=== PATIENT | female | born 1995 | race Caucasian/White ===

== ENCOUNTER 2019-02-07 09:42 | Emergency (ER) | payer OTHER ==
[~2019-02-07] VITALS: Ht 165.1 cm; Wt 114.9 kg
[2019-02-07 09:50] VITALS: BP 135/94
--- NOTE | 2019-02-07 09:57 | NUR ---
Pt. ambulated to bed 3
--- NOTE | 2019-02-07 09:58 | NUR ---
BIB SELF C/O RIGHT BIG TOE PAIN S/P HIT HER RIGHT TOE ON A CORNER OF A TABLE YESTERDAY. +CMS TO RIGHT 1ST TOE. PT STATES SHE TOOK TRAMADOL AT 0600 WITH NO RELIEF. MED HX:MIGRAINE. AAOX4 WITH EVEN AND STEADY GAIT;PATIENT STATES PAIN OF 7/10 AT THIS TIME; PATIENT POSITIONED FOR COMFORT; HOB ELEVATED; BEDRAILS UP X1; BED DOWN. ER MD MADE AWARE OF PT STATUS.
[2019-02-07] MEDS ORDERED: LIDOCAINE MPF 1% 5mL VIAL INJ ONE (10:20)
--- NOTE | 2019-02-07 10:46 | NUR ---
RIGHT BIG TOENAIL REMOVED BY DR FAIRCHILD. PT TOLERATED PROCEDURE WELL.
[2019-02-07] MEDS ORDERED: CEPHALEXIN 500 MG CAP PO ONE (11:40)
[2019-02-07 12:23] VITALS: BP 132/89
--- NOTE | 2019-02-07 12:23 | NUR ---
Patient discharged with v/s stable. Written and verbal after care instructions given and explained. Patient alert, oriented and verbalized understanding of instructions. Ambulatory with steady gait. All questions addressed prior to discharge. ID band removed. Patient advised to follow up with PMD. Rx of Keflex 500mg given. Patient educated on indication of medication including possible reaction and side effects. Opportunity to ask questions provided and answered.
== END 2019-02-07 12:23 | disposition home or self-care (01) ==
LOC: MED 09:42
DX: B35.1 Tinea unguium (principal); L60.0 Ingrowing nail; G43.909 Migraine, unspecified, not intractable, without status migrainosus
CPT/HCPCS: 11730; 99283; J2001

== ENCOUNTER 2019-12-13 10:53 | Emergency (ER) | payer OTHER ==
[~2019-12-13] VITALS: Ht 165.1 cm; Wt 113.4 kg
[2019-12-13 10:58] VITALS: BP 148/86
--- NOTE | 2019-12-13 11:00 | NUR ---
PT AMBULATED TO LOBBY
--- NOTE | 2019-12-13 12:40 | NUR ---
PT TAKEN TO BED 12.
--- NOTE | 2019-12-13 12:51 | NUR ---
DEEPA YATES EVALUATING PT AT BEDSIDE
[2019-12-13] MEDS ORDERED: KETOROLAC 30 MG/ML VIAL IM ONE (12:55)
[2019-12-13] MEDS ORDERED: PROCHLORPERAZINE 10 MG/2 ML VIAL IM ONE (12:55)
--- NOTE | 2019-12-13 13:00 | NUR ---
PT AMB TO BATHROOM STEADY GAIT TO PROVIDE URINE SAMPLE
--- NOTE | 2019-12-13 13:35 | NUR ---
PT STATES PAIN DECREASING TO 6/10 AT THIS TIME
--- NOTE | 2019-12-13 14:00 | NUR ---
Patient discharged with v/s stable. Written and verbal after care instructions given and explained. Patient alert, oriented and verbalized understanding of instructions. Ambulatory with steady gait. All questions addressed prior to discharge. ID band removed. Patient advised to follow up with PMD. Rx of TRAMADOL, ZOFRAN, TYLENOL given. Patient educated on indication of medication including possible reaction and side effects. Opportunity to ask questions provided and answered.
[2019-12-13 14:02] VITALS: BP 120/67
== END 2019-12-13 14:00 | disposition home or self-care (01) ==
LOC: MED 10:53
DX: R51 Headache (principal)
CPT/HCPCS: 81025; 96372; 99284; J0780; J1885; Q0163

== ENCOUNTER 2019-12-18 07:53 | Emergency (ER) | payer OTHER ==
[~2019-12-18] VITALS: Ht 167.6 cm; Wt 111.6 kg
[2019-12-18 07:58] VITALS: BP 138/84
--- NOTE | 2019-12-18 08:03 | NUR ---
PT TAKEN TO BED 7.
--- NOTE | 2019-12-18 08:10 | NUR ---
PT C/O HEADACHE X 1.5 WEEK ACCOMPANIED BY N/V & DIZZINESS. PT WAS SEEN AT [facility] December AND SENT HOME W/ DX OF MIGRAINES. PER PT, TRAMADOL, IBUPROFEN AND TYLENOL IS NOT RELIEVING PAIN. DENIES PHOTOPHOBIA OR SENSITIVITY TO SOUND. PT WAS TOLD TO HAVE A CT SCAN BY HER PCP BUT WAITED 4 HOURS AT [facility] AND WAS NOT SEEN. PT DENIES ANY FEVER, CP, SOB, OR COUGH AT THIS TIME; PATIENT STATES PAIN OF 9/10 AT THIS TIME; VSS; PATIENT POSITIONED FOR COMFORT; HOB ELEVATED; BEDRAILS UP X1; BED DOWN. ER MD MADE AWARE OF PT STATUS.
--- NOTE | 2019-12-18 08:12 | NUR ---
Dr. Paulino is evaluating the patient at bedside.
[2019-12-18] MEDS ORDERED: PROCHLORPERAZINE 10 MG/2 ML VIAL IVP ONE (08:20)
[2019-12-18] MEDS ORDERED: ACETAMINOPHEN 325 MG TAB PO ONE (08:20)
[2019-12-18] MEDS ORDERED: NACL 0.45% 1,000 ML IV ONE (08:20)
[2019-12-18] MEDS ORDERED: KETOROLAC 30 MG/ML VIAL IVP ONE (08:20)
[2019-12-18] MEDS ORDERED: diphenhydrAMINE 50 MG/ML VIAL IVP ONE (08:20)
--- NOTE | 2019-12-18 08:28 | NUR ---
Patient taken to CT scan via wheelchair by tech.
--- NOTE | 2019-12-18 08:35 | NUR ---
Pt to bed 07 via W/C from CT scan.
--- NOTE | 2019-12-18 09:13 | NUR ---
PT STATES SHE FEELS BETTER AT THIS TIME.
--- NOTE | 2019-12-18 09:36 | NUR ---
DR. DOMINGUEZ RE-EVALUATING PT AT BEDSIDE
[2019-12-18 10:03] VITALS: BP 120/78
--- NOTE | 2019-12-18 10:03 | NUR ---
Patient discharged with v/s stable. Written and verbal after care instructions given and explained. Patient alert, oriented and verbalized understanding of instructions. Ambulatory with steady gait. All questions addressed prior to discharge. ID band removed. Patient advised to follow up with PMD. Rx of Compazine given. Patient educated on indication of medication including possible reaction and side effects. Opportunity to ask questions provided and answered.
== END 2019-12-18 10:03 | disposition home or self-care (01) ==
LOC: MED 07:53
DX: G43.909 Migraine, unspecified, not intractable, without status migrainosus (principal)
CPT/HCPCS: 70450; 81002; 81025; 96374; 96375; 99284; J0780; J1200; J1885; J7030

== ENCOUNTER 2019-12-20 08:44 | Emergency (ER) | payer OTHER ==
[~2019-12-20] VITALS: Ht 165.1 cm; Wt 110.2 kg
[2019-12-20 08:47] VITALS: BP 155/90
[2019-12-20] MEDS ORDERED: TOMOMETER 1 DEV DEV MC ONE (08:58)
[2019-12-20] MEDS ORDERED: TETRACAINE HCL/PF 0.5% OPTH 4 ML BTL OP ONE (09:00)
[2019-12-20 09:24] LABS: BASOPHILS % (AUTO) 0.4 % (0.0-2.0); EOSINOPHILS # (AUTO) 0.1 K/uL (0-0.4); EOSINOPHILS % (AUTO) 0.7 % (0.0-4.0); HEMATOCRIT 46.9 % (36-48); HEMOGLOBIN 15.7 g/dL (12.0-16.0); LYMPHOCYTES # (AUTO) 2.6 K/uL (2.5-16.5); MEAN CORPUSCULAR HEMOGLOBIN 33 pg (27-31); MEAN CORPUSCULAR HGB CONC 34 g/dL (33-37); MEAN CORPUSCULAR VOLUME 98.4 fL (80-94); MONOCYTES # (AUTO) 0.5 K/uL (0.8-1.0); MONOCYTES % (AUTO) 5.1 % (1.7-9.3); NEUTROPHILS # (AUTO) 6.4 K/uL (1.8-7.7); NEUTROPHILS % (AUTO) 66.8 % (42.2-75.2); PLATELET COUNT (AUTO) 356 K/uL (140-450); RED BLOOD CELL COUNT(AUTO) 4.76 MIL/uL (4.20-5.40); RED CELL DISTRIBUTION WIDTH 13.7 % (11.6-13.7); WHITE BLOOD COUNT (AUTO) 9.6 K/uL (4.8-10.8)
[2019-12-20 09:50] LABS: ALBUMIN 4.6 g/dL (3.4-5.0); ANION GAP 15.2 (8-16); CARBON DIOXIDE 29.3 mmol/L (21-32); CREATININE 0.8 mg/dL (0.6-1.3); POTASSIUM 3.5 mmol/L (3.5-5.1); TOTAL BILIRUBIN 0.5 mg/dL (0.0-1.0)
[2019-12-20] MEDS ORDERED: ACETAMINOPHEN EXTRA STRENGTH 500 MG TAB PO ONE (12:30)
[2019-12-20 13:25] VITALS: BP 155/90
== END 2019-12-20 13:25 | disposition home or self-care (01) ==
LOC: MED 08:44
DX: H49.01 Third [oculomotor] nerve palsy, right eye (principal); H02.409 Unspecified ptosis of unspecified eyelid; H53.2 Diplopia; R51 Headache; G43.909 Migraine, unspecified, not intractable, without status migrainosus
CPT/HCPCS: 36415; 70496; 80053; 81002; 81025; 85025; 99284; Q9967

== ENCOUNTER 2020-03-02 16:40 | Emergency (ER) | payer OTHER ==
[~2020-03-02] VITALS: Ht 167.6 cm; Wt 116.6 kg
[2020-03-02 16:55] VITALS: BP 149/90
[2020-03-02 18:44] LABS: BASOPHILS % (AUTO) 0.1 % (0.0-2.0); EOSINOPHILS # (AUTO) 0.4 K/uL (0-0.4); EOSINOPHILS % (AUTO) 4.3 % (0.0-4.0); HEMATOCRIT 39.7 % (36-48); HEMOGLOBIN 13.4 g/dL (12.0-16.0); LYMPHOCYTES # (AUTO) 2.9 K/uL (2.5-16.5); LYMPHOCYTES % (AUTO) 33.8 % (20.5-51.1); MEAN CORPUSCULAR HEMOGLOBIN 33 pg (27-31); MEAN CORPUSCULAR HGB CONC 34 g/dL (33-37); MEAN CORPUSCULAR VOLUME 98.2 fL (80-94); MONOCYTES # (AUTO) 0.6 K/uL (0.8-1.0); MONOCYTES % (AUTO) 7.3 % (1.7-9.3); NEUTROPHILS # (AUTO) 4.6 K/uL (1.8-7.7); NEUTROPHILS % (AUTO) 54.5 % (42.2-75.2); PLATELET COUNT (AUTO) 321 K/uL (140-450); RED BLOOD CELL COUNT(AUTO) 4.04 MIL/uL (4.20-5.40); RED CELL DISTRIBUTION WIDTH 13.8 % (11.6-13.7); WHITE BLOOD COUNT (AUTO) 8.5 K/uL (4.8-10.8)
[2020-03-02 18:56] LABS: ALBUMIN 3.8 g/dL (3.4-5.0); ANION GAP 13.3 (8-16); CARBON DIOXIDE 27.3 mmol/L (21-32); CREATININE 0.6 mg/dL (0.6-1.3); POTASSIUM 3.6 mmol/L (3.5-5.1); TOTAL BILIRUBIN 0.3 mg/dL (0.0-1.0)
[2020-03-02 19:43] VITALS: BP 128/76
[2020-03-02] MEDS ORDERED: INTUBATION KIT MC ONE (21:24)
[2020-03-02 22:19] LABS: APPEARANCE,URINE CLEAR (CLEAR); BILIRUBIN,URINE NEGATIVE (NEGATIVE); BLOOD, URINE 2+ (NEGATIVE); COLOR,URINE YELLOW (YELLOW); LEUKOCYTE ESTERASE ,URINE 1+ (NEGATIVE); NITRITE, URINE NEGATIVE (NEGATIVE); PH,URINE 6.5 (5.0-9.0); UGLUCOSE NEGATIVE (NEGATIVE)
== END 2020-03-02 19:40 | disposition home or self-care (01) ==
LOC: MED 16:40
DX: N39.0 Urinary tract infection, site not specified (principal); F17.210 Nicotine dependence, cigarettes, uncomplicated; F12.10 Cannabis abuse, uncomplicated; Z87.42 Personal history of other diseases of the female genital tract
CPT/HCPCS: 36415; 76856; 80053; 81001; 81025; 85025; 87086; 93976; 99284; Q0092

== ENCOUNTER 2020-03-03 11:29 | Emergency (ER) | payer OTHER ==
[~2020-03-03] VITALS: Ht 165.1 cm; Wt 114.3 kg
[2020-03-03 11:39] VITALS: BP 150/82
--- NOTE | 2020-03-03 11:44 | NUR ---
24 y/o female from home c/o lower abd pain x 3 days. Pt states she was seen at [facility] yesterday for same pain. Denies N/V/D. Abd slightly tender to palp. Denies difficulty with bowel movement. Afebrile upon arrival. Positioned for comfort. VSS medhx: migraines, genital herpes
--- NOTE | 2020-03-03 11:56 | NUR ---
Dr Flores at bedside examining pt
[2020-03-03] MEDS ORDERED: KETOROLAC 30 MG/ML VIAL IVP ONE (12:05)
[2020-03-03] MEDS ORDERED: ONDANSETRON 4 MG/2 ML VIAL IVP ONE (12:05)
[2020-03-03] MEDS ORDERED: NACL 0.9% 1,000 ML IV ONE (12:05)
--- NOTE | 2020-03-03 12:15 | NUR ---
Pt refuses blood draw stating she had blood drawn yesterday
--- NOTE | 2020-03-03 12:20 | NUR ---
20G IV placed to left ac, blood drawn at this time.
[2020-03-03 12:30] LABS: APPEARANCE,URINE CLEAR (CLEAR); BILIRUBIN,URINE NEGATIVE (NEGATIVE); BLOOD, URINE TRACE-I (NEGATIVE); COLOR,URINE YELLOW (YELLOW); LEUKOCYTE ESTERASE ,URINE TRACE (NEGATIVE); NITRITE, URINE NEGATIVE (NEGATIVE); UGLUCOSE NEGATIVE (NEGATIVE)
[2020-03-03 12:38] LABS: RBC,URINE 0-5 /HPF (0-5); WBC,URINE 0-5 /HPF (0-5)
--- NOTE | 2020-03-03 12:43 | NUR ---
Consent for CT with constrast signed by pt
[2020-03-03 12:51] LABS: BASOPHILS % (AUTO) 0.1 % (0.0-2.0); EOSINOPHILS # (AUTO) 0.2 K/uL (0-0.4); EOSINOPHILS % (AUTO) 2.2 % (0.0-4.0); HEMATOCRIT 42.7 % (36-48); HEMOGLOBIN 14.6 g/dL (12.0-16.0); LYMPHOCYTES # (AUTO) 1.9 K/uL (2.5-16.5); LYMPHOCYTES % (AUTO) 20.1 % (20.5-51.1); MEAN CORPUSCULAR HEMOGLOBIN 33 pg (27-31); MEAN CORPUSCULAR HGB CONC 34 g/dL (33-37); MEAN CORPUSCULAR VOLUME 97.2 fL (80-94); MONOCYTES # (AUTO) 0.5 K/uL (0.8-1.0); MONOCYTES % (AUTO) 5.7 % (1.7-9.3); NEUTROPHILS # (AUTO) 6.8 K/uL (1.8-7.7); NEUTROPHILS % (AUTO) 71.9 % (42.2-75.2); PLATELET COUNT (AUTO) 319 K/uL (140-450); RED BLOOD CELL COUNT(AUTO) 4.39 MIL/uL (4.20-5.40); RED CELL DISTRIBUTION WIDTH 13.9 % (11.6-13.7); WHITE BLOOD COUNT (AUTO) 9.5 K/uL (4.8-10.8)
[2020-03-03 13:05] LABS: ALBUMIN 4.2 g/dL (3.4-5.0); ANION GAP 13.8 (8-16); CARBON DIOXIDE 27.6 mmol/L (21-32); CREATININE 0.6 mg/dL (0.6-1.3); POTASSIUM 3.4 mmol/L (3.5-5.1); TOTAL BILIRUBIN 0.6 mg/dL (0.0-1.0)
--- NOTE | 2020-03-03 13:23 | NUR ---
Pt taken to CT by wheelchair
--- NOTE | 2020-03-03 13:33 | NUR ---
Pt returned from CT via wheelchair
--- NOTE | 2020-03-03 14:16 | NUR ---
IV discontinued, 2x2 gauze placed to IV site, bleeding controlled
[2020-03-03 14:19] VITALS: BP 150/82
--- NOTE | 2020-03-03 14:20 | NUR ---
Patient discharged with v/s stable. Written and verbal after care instructions given and explained. Patient alert, oriented and verbalized understanding of instructions. Ambulatory with steady gait. All questions addressed prior to discharge. ID band removed. Patient advised to follow up with PMD. Rx of MiraLax and Colace given. Patient educated on indication of medication including possible reaction and side effects. Opportunity to ask questions provided and answered.
== END 2020-03-03 14:20 | disposition home or self-care (01) ==
LOC: MED 11:29
DX: K59.00 Constipation, unspecified (principal); B00.9 Herpesviral infection, unspecified; F12.90 Cannabis use, unspecified, uncomplicated; F17.200 Nicotine dependence, unspecified, uncomplicated; R03.0 Elevated blood-pressure reading, without diagnosis of hypertension; Z71.6 Tobacco abuse counseling
CPT/HCPCS: 36415; 74177; 80053; 81001; 81025; 85025; 96361; 96374; 96375; 99285; J1885; J2405; J7030; Q9967

== ENCOUNTER 2022-02-14 16:45 | Emergency (ER) | payer OTHER ==
[~2022-02-14] VITALS: Ht 167.6 cm; Wt 112.5 kg
[2022-02-14 17:02] VITALS: BP 134/91
--- NOTE | 2022-02-14 17:12 | NUR ---
PT AMB TO BED 12.
[2022-02-14] MEDS ORDERED: KETOROLAC 30 MG/ML VIAL IM ONE (17:45)
[2022-02-14] MEDS ORDERED: DEXAMETHASONE 10 MG/ML VIAL IM ONE (17:45)
[2022-02-14] MEDS ORDERED: ACETAMINOPHEN EXTRA STRENGTH 500 MG TAB PO ONE (17:45)
--- NOTE | 2022-02-14 17:54 | NUR ---
26 y/o female bib self from home, pt presents to ed with c/o sore throat, subjective fever and throat pain with swallowing that started yesterday. pt denies cough, runny nose, chills, n/v/d or anyone sick at home with the same s/s. a&ox4, ambulates with steady gait. lungs clear bl. pmh: denies nka med: denies
[2022-02-14] MEDS ORDERED: BENZ-300 PO (18:22)
[2022-02-14] MEDS ORDERED: IBUP-2218 PO (18:22)
[2022-02-14] MEDS ORDERED: AMOX1TAB8 PO (18:22)
--- NOTE | 2022-02-14 18:36 | NUR ---
rocio swabbed at this time
[2022-02-14 18:37] VITALS: BP 134/91
--- NOTE | 2022-02-14 18:37 | NUR ---
Patient discharged with v/s stable. Written and verbal after care instructions given and explained. Patient alert, oriented and verbalized understanding of instructions. Ambulatory with steady gait. All questions addressed prior to discharge. ID band removed. Patient advised to follow up with PMD. Rx of amoxicillin, cepacol, ibuprofen (sent) given. Patient educated on indication of medication including possible reaction and side effects. Opportunity to ask questions provided and answered.
== END 2022-02-14 18:37 | disposition home or self-care (01) ==
LOC: MED 16:45
DX: J02.9 Acute pharyngitis, unspecified (principal); Z20.822 Contact with and (suspected) exposure to COVID-19; R03.0 Elevated blood-pressure reading, without diagnosis of hypertension; Z79.899 Other long term (current) drug therapy
CPT/HCPCS: 87426; 96372; 99284; J1100; J1885

== ENCOUNTER 2022-07-24 22:50 | Emergency (ER) | payer OTHER ==
[~2022-07-24] VITALS: Ht 167.6 cm; Wt 104.3 kg
[~2022-07-24 22:50] MED LIST: AMOX1TAB8 PO; BENZ-300 PO; IBUP-2218 PO
[2022-07-24 22:55] VITALS: BP 142/85
--- NOTE | 2022-07-24 23:00 | NUR ---
TO LOBBY A/W BED AMBULATORY
--- NOTE | 2022-07-25 00:05 | NUR ---
PATIENT GO HOME, CANT WAIT. PATIENT LEFT WITHOUT BEING SEEN BY DR. WELLS. NO FURTHER CARE PROVIDED FOR PATIENT.
== END 2022-07-25 00:05 | disposition left against medical advice (07) ==
LOC: MED 22:50
DX: A64 Unspecified sexually transmitted disease (principal); Z53.21 Procedure and treatment not carried out due to patient leaving prior to being seen by health care provider